=== PATIENT | female | born 1965 | race Caucasian/White ===

== ENCOUNTER 2018-01-02 12:57 | Emergency (ER) | payer MEDICAID ==
[2018-01-02] MEDS ORDERED: Pantoprazole 40 MG Vial IVPUSH ONE (13:38)
[2018-01-02] MEDS ORDERED: Sodium Chloride 0.9% 10 ML Syringe FLUSH PRN (13:38)
[2018-01-02] MEDS ORDERED: Ondansetron 4 MG/2 ML SDV IVPUSH ONE (13:39)
[2018-01-02] MEDS ORDERED: Sodium Chloride 0.9% 1,000 ML IV SCH ×2 (13:45→14:45)
--- NOTE | 2018-01-02 13:46 | EDM.PDOC ---
ED HPI GENERAL MEDICAL PROBLEM - General Chief Complaint: Gastrointestinal Problem Stated Complaint: VOMITTING BLOOD,STOMACH PAIN,TAR BLACK STOOL Time Seen by Provider: 01/02/18 13:20 Source of Information: Reports: Patient History Limitations: Reports: No Limitations - History of Present Illness INITIAL COMMENTS - FREE TEXT/NARRATIVE: Lola comes into [facility] ED with 2 episodes of BRB emesis today, each about a cup in volume. She has been experiencing epigastric pain over the past 48 hours since beginning a prescription for doxycycline for a nonhealing leg wound. There is a remote hx of gastric varicies diagnosed and treated with coils therapy in [facility] in June 2017. She did not return for a follow up procedure because of lack of health insurance. 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 There is a remote hx of Hep C, treated with Harvoni successfully in [place], [place]. Middle Abdominal Pain Score (Numeric/FACES): 7 - Related Data Allergies Allergy/AdvReac Type Severity Reaction Status Date / Time Sulfa (Sulfonamide Allergy Difficulty Verified 01/02/18 13:17 Antibiotics) Breathing Home Meds: Home Meds Lisinopril 20 mg PO DAILY 01/02/18 [History] metFORMIN [Glucophage] 1,000 mg PO DAILY 01/02/18 [History] metFORMIN [Glucophage] 1,500 mg PO BEDTIME 01/02/18 [History] Past Medical History Cardiovascular History: Reports: Hypertension Gastrointestinal History: Reports: Cirrhosis, Hepatitis (Hep C treated with Harvoni), Other (See Below) Other Gastrointestinal History: gastric varicies 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 Endocrine/Metabolic History: Reports: Diabetes, Type II Immunologic History: Reports: Other (See Below) Other Immunologic History: Hep C Dermatologic History: Reports: Other (See Below) Other Dermatologic History: lesion on leg - Infectious Disease History Infectious Disease History: Reports: Hepatitis C Social & Family History - Tobacco Use Smoking Status *Q: Former Smoker Used Tobacco, but Quit: Yes Month/Year Tobacco Last Used: 2012 Tobacco Use Comment: previously smoked 1.5 ppd - Caffeine Use Caffeine Use: Reports: Coffee - Recreational Drug Use Recreational Drug Use: No ED ROS GENERAL - Review of Systems Review Of Systems: See Below Constitutional: Reports: Malaise, Weakness, Fatigue, Decreased Appetite HEENT: Reports: No Symptoms Respiratory: Reports: No Symptoms Cardiovascular: Reports: Lightheadedness Endocrine: Reports: Fatigue, High Glucose GI/Abdominal: Reports: Abdominal Pain, Black Stool, Decreased Appetite, Hematemesis, Hematochezia, Melena, Nausea, Vomiting : Reports: No Symptoms Musculoskeletal: Reports: No Symptoms Skin: Reports: No Symptoms Neurological: Reports: No Symptoms Psychiatric: Reports: No Symptoms Hematologic/Lymphatic: Reports: Anemia Immunologic: Reports: No Symptoms ED EXAM, GI/ABD - Physical Exam Exam: See Below Exam Limited By: Physical Impairment General Appearance: Alert, WD/WN, Mild Distress Eyes: Bilateral: Normal Appearance, EOMI, Pale Conjunctiva Ears: Normal External Exam Nose: Normal Inspection Throat/Mouth: Normal Oropharynx, Normal Voice Head: Normocephalic Neck: Normal Inspection, Supple, Non-Tender Respiratory/Chest: Lungs Clear, Normal Breath Sounds Cardiovascular: Normal Peripheral Pulses, Regular Rate, Rhythm, No Edema, No Murmur GI/Abdominal Exam: Normal Bowel Sounds, Soft, No Distention, Tender (epigastrium ) (Female) Exam: Deferred Rectal (Female) Exam: Deferred Back Exam: Normal Inspection Extremities: Normal Inspection Neurological: Alert, Oriented, CN II-XII Intact, Normal Cognition, No Motor/ Sensory Deficits Psychiatric: Normal Affect, Normal Mood Skin Exam: Warm, Dry, Pallor, Other (minor excoriation L leg) Lymphatic: No Adenopathy Course - Vital Signs Text/Narrative:: Following assessment at the [facility] ED, I administered NS 2L, Protonix 80 mg IV, and Zofran 4 mg IV. Subsequent labs noted Hgb 6.1 gm %, WBC 4100., plts 85,000; CMP noted stable LFTs and renal function; PT/INR baseline; Case was discussed with Dr Hansen time motion analyst surgeon who suggested transfer to tertiary center. Case was discussed with Dr Figueroa at [facility] who accepted transfer. Last Recorded V/S: Last Vital Signs Temp 37.0 C 01/02/18 13:19 Pulse Resp 16 01/02/18 13:19 BP 114/67 01/02/18 13:19 Pulse Ox 100 01/02/18 13:19 - Orders/Labs/Meds Orders: Active Orders 24 hr Category Date Time Status RED BLOOD CELLS LP [BBK] Stat Lab 01/02/18 14:20 Ordered TYPE AND SCREEN [BBK] Stat Lab 01/02/18 14:18 Ordered UA W/MICROSCOPIC [URIN] Stat Lab 01/02/18 13:38 Ordered Sodium Chloride 0.9% [Normal Saline] 1,000 ml Med 01/02/18 13:45 Active IV ASDIRECTED Sodium Chloride 0.9% [Saline Flush] Med 01/02/18 13:38 Active 10 ml FLUSH ASDIRECTED PRN Peripheral IV Insertion Adult [OM.PC] Routine Oth 01/02/18 13:38 Ordered Medication Orders Sodium Chloride (Normal Saline) 1,000 mls @ 999 mls/hr IV ASDIRECTED WILLY Last Admin: 01/02/18 13:54 Dose: 999 mls/hr Sodium Chloride (Saline Flush) 10 ml FLUSH ASDIRECTED PRN PRN Reason: Keep Vein Open Labs: Laboratory Tests 01/02/18 01/02/18 01/02/18 Range/Units 13:48 13:48 13:48 WBC 4.1 L (4.5-12.0) X10-3/uL RBC 3.26 (3.23-5.20) x10(6)uL Hgb 6.1 L* (11.5-15.5) g/dL Hct 20.5 L* (30.0-51.3) % MCV 63.1 L (80-96) fL MCH 18.8 L (27.7-33.6) pg MCHC 29.8 L (32.2-35.4) g/dL RDW 19.3 H (11.5-15.5) % Plt Count 85 L (125-369) X10(3)uL MPV 9.2 (7.4-10.4) fL Neut % (Auto) 70.7 (46-82) % Lymph % (Auto) 20.9 (13-37) % [place] % (Auto) 5.7 (4-12) % Eos % (Auto) 2 (1.0-5.0) % Baso % (Auto) 1 (0-2) % Neut # (Auto) 2.9 (1.6-8.3) # Lymph # (Auto) 0.9 (0.6-5.0) # [place] # (Auto) 0.2 (0.0-1.3) # Eos # (Auto) 0.1 (0.0-0.8) # Baso # (Auto) 0.0 (0.0-0.2) # PT 10.4 (8.7-11.1) INR 1.07 (0.89-1.13) Sodium 136 (135-145) mmol/L Potassium 3.5 (3.5-5.3) mmol/L Chloride 103 (100-110) mmol/L Carbon Dioxide 25 (21-32) mmol/L BUN 20 H (7-18) mg/dL Creatinine 0.7 (0.55-1.02) mg/dL Est Cr Clr Drug Dosing 99.35 mL/min Estimated GFR (MDRD) > 60 (>60) BUN/Creatinine Ratio 28.6 H (9-20) Glucose 188 H (80-116) mg/dL Hemoglobin A1c (4.5-6.2) % Calcium 8.7 (8.6-10.2) mg/dL Total Bilirubin 0.8 (0.1-1.3) mg/dL AST 24 (5-25) IU/L ALT 12 (12-36) U/L Alkaline Phosphatase 76 (56-112) IU/L Total Protein 7.5 (6.0-8.0) g/dL Albumin 3.4 L (3.5-5.2) g/dL Globulin 4.1 g/dL Albumin/Globulin Ratio 0.8 08/20/18 Range/Units 13:48 WBC (4.5-12.0) X10-3/uL RBC (3.23-5.20) x10(6)uL Hgb (11.5-15.5) g/dL Hct (30.0-51.3) % MCV (80-96) fL MCH (27.7-33.6) pg MCHC (32.2-35.4) g/dL RDW (11.5-15.5) % Plt Count (125-369) X10(3)uL MPV (7.4-10.4) fL Neut % (Auto) (46-82) % Lymph % (Auto) (13-37) % [place] % (Auto) (4-12) % Eos % (Auto) (1.0-5.0) % Baso % (Auto) (0-2) % Neut # (Auto) (1.6-8.3) # Lymph # (Auto) (0.6-5.0) # [place] # (Auto) (0.0-1.3) # Eos # (Auto) (0.0-0.8) # Baso # (Auto) (0.0-0.2) # PT (8.7-11.1) INR (0.89-1.13) Sodium (135-145) mmol/L Potassium (3.5-5.3) mmol/L Chloride (100-110) mmol/L Carbon Dioxide (21-32) mmol/L BUN (7-18) mg/dL Creatinine (0.55-1.02) mg/dL Est Cr Clr Drug Dosing mL/min Estimated GFR (MDRD) (>60) BUN/Creatinine Ratio (9-20) Glucose (80-116) mg/dL Hemoglobin A1c 8.5 H (4.5-6.2) % Calcium (8.6-10.2) mg/dL Total Bilirubin (0.1-1.3) mg/dL AST (5-25) IU/L ALT (12-36) U/L Alkaline Phosphatase (56-112) IU/L Total Protein (6.0-8.0) g/dL Albumin (3.5-5.2) g/dL Globulin g/dL Albumin/Globulin Ratio Meds: Medications Generic Name Dose Route Start Last Admin Trade Name Freq PRN Reason Stop Dose Admin Sodium Chloride 1,000 mls @ 999 mls/hr 01/02/18 13:45 01/02/18 13:54 Normal Saline IV 999 mls/hr ASDIRECTED WILLY Administration Sodium Chloride 10 ml 01/02/18 13:38 Saline Flush FLUSH ASDIRECTED PRN Keep Vein Open Discontinued Medications Generic Name Dose Route Start Last Admin Trade Name Freq PRN Reason Stop Dose Admin Ondansetron HCl 4 mg 01/02/18 13:39 Zofran IVPUSH 01/02/18 13:40 ONETIME ONE Pantoprazole Sodium 80 mg 01/02/18 13:38 01/02/18 13:54 Protonix Iv IVPUSH 01/02/18 13:39 80 mg .BOLUS ONE Administration Departure - Departure Time of Disposition: 14:49 Disposition: DC/Tfer to Other 70 Condition: Fair Clinical Impression: Gastric bleeding - Discharge Information Referrals: PCP,Not In Area [Primary Care Provider] - Forms: ED Department Discharge - Problem List & Annotations (1) Gastric bleeding SNOMED Code(s): 49952169 Code(s): K92.2 - GASTROINTESTINAL HEMORRHAGE, UNSPECIFIED Status: Acute Current Visit: Yes Annotation/Comment:: Continue IV NS, NPO, and transfer to [facility] for GI managment. - Problem List Review Problem List Initiated/Reviewed/Updated: Yes - My Orders Last 24 Hours: My Active Orders 01/02/18 13:38 UA W/MICROSCOPIC [URIN] Stat Sodium Chloride 0.9% [Saline Flush] 10 ml FLUSH ASDIRECTED PRN Peripheral IV Insertion Adult [OM.PC] Routine 01/02/18 13:45 Sodium Chloride 0.9% [Normal Saline] 1,000 ml IV ASDIRECTED 01/02/18 14:18 TYPE AND SCREEN [BBK] Stat 01/02/18 14:20 RED BLOOD CELLS LP [BBK] Stat - Assessment/Plan Last 24 Hours: My Active Orders 01/02/18 13:38 UA W/MICROSCOPIC [URIN] Stat Sodium Chloride 0.9% [Saline Flush] 10 ml FLUSH ASDIRECTED PRN Peripheral IV Insertion Adult [OM.PC] Routine 01/02/18 13:45 Sodium Chloride 0.9% [Normal Saline] 1,000 ml IV ASDIRECTED 01/02/18 14:18 TYPE AND SCREEN [BBK] Stat 01/02/18 14:20 RED BLOOD CELLS LP [BBK] Stat Plan: Follow up with GI service.
[2018-01-02] MEDS ORDERED: cefTRIAXone 1,000 MG VIAL IVPUSH ONE (14:45)
== END 2018-01-02 15:22 | disposition other institution (70) ==
LOC: FB.ED 12:57
DX: K92.0 Hematemesis (principal); I10 Essential (primary) hypertension; E11.9 Type 2 diabetes mellitus without complications; Z79.84 Long term (current) use of oral hypoglycemic drugs; Z87.891 Personal history of nicotine dependence; Z88.2 Allergy status to sulfonamides; Z79.899 Other long term (current) drug therapy
CPT/HCPCS: 36415; 80053; 81001; 83036; 85025; 85610; 96361; 96374; 96375; 99285; C9113; J0696; J2405; J7030